=== PATIENT | female | born 1965 | race African-American/Black ===

== ENCOUNTER 2017-08-07 14:40 | Emergency (ER) | payer OTHER | END 2017-08-07 16:27 | disposition home or self-care (01) | LOC: ER 14:40 | DX: S40.022A Contusion of left upper arm, initial encounter (principal); I10 Essential (primary) hypertension; Z90.710 Acquired absence of both cervix and uterus; Z98.51 Tubal ligation status; X58.XXXA Exposure to other specified factors, initial encounter; Y93.89 Activity, other specified; Y92.89 Other specified places as the place of occurrence of the external cause; Y99.8 Other external cause status | CPT/HCPCS: 93971; 99283 ==

== ENCOUNTER 2021-06-24 11:42 | Emergency (ER) | payer SELFPAY ==
[~2021-06-24] VITALS: Ht 162.6 cm; Wt 96.3 kg
[~2021-06-24 11:42] MED LIST: ASCO500C PO; CALC500T54 PO; CHOL100013 PO; CYAN-25 PO; MULT-212 PO
[2021-06-24] MEDS ORDERED: KETOROLAC 60 MG/2 ML VIAL. IM ONE (12:15)
--- NOTE | 2021-06-24 13:08 | RAD ---
Left hip 2 views with one view pelvis. HISTORY: Pain, fell groin left hip pain Single view was taken of the pelvis. A pelvic fracture is not identified. Right hip appears unremarka ble. There is degenerative disc disease throughout the lumbar spine. AP and lateral views were taken of the left hip. There is slight spurring on the femoral head from mi ld arthritis. There is no fracture or acute osseous abnormality. IMPRESSION: 1. Degenerative disc disease in the lumbar spine. 2. No pelvic fracture noted. 3. Slight spurring from mild arthritis left hip. Electronically signed by: Nikolai Tucker MD (06/24/2021 1:05 PM) [id number]
--- NOTE | 2021-06-24 13:44 | PHYS DOC ---
Past Medical History Past Medical History: Hypertension Past Surgical History: Hysterectomy, Tubal ligation Smoking Status: Never Smoker Alcohol Use: Occasionally Additional Information: WINE Drug Use: None General Adult EDM: Chief Complaint: GROIN PAIN HPI: HPI: Patient is a 56 year old female presents to the ER with left groin pain. Patient states that yesterday she slipped on the floor of a [employer] and did the splits. States that today the pain has gotten worse patient has pain with ambulation. Denies any numbness or tingling. Review of Systems: Review of Systems: Constitutional: Denies fever or chills. Eyes: Denies change in visual acuity. HENT: Denies nasal congestion or sore throat. Respiratory: Denies cough or shortness of breath. Cardiovascular: Denies chest pain or edema. GI: Denies abdominal pain, nausea, vomiting, bloody stools or diarrhea. : Denies dysuria. Musculoskeletal: Left groin pain denies back pain or joint pain. Integument: Denies rash. Neurologic: Denies headache, focal weakness or sensory changes. Endocrine: Denies polyuria or polydipsia. Lymphatic: Denies swollen glands. [ Psychiatric: Denies depression or anxiety. Heart Score: C/O Chest Pain: No Risk Factors: Risk Factors: DM, Current or recent (<one month) smoker, HTN, HLP, family history of CAD, obesity. Risk Scores: Score 0 - 3: 2.5% MACE over next 6 weeks - Discharge Home Score 4 - 6: 20.3% MACE over next 6 weeks - Admit for Clinical Observation Score 7 - 10: 72.7% MACE over next 6 weeks - Early Invasive Strategies Current Medications: Current Medications Medications (Trade) Dose Ordered Sig/[facility] Start Time Stop Time Status Last Admin Dose Admin Ketorolac Tromethamine (Toradol Im) 30 mg 1X ONCE 06/24/21 12:15 06/24/21 12:17 DC 06/24/21 12:49 30 MG Lorazepam (Ativan Inj) 1 mg 1X ONCE 06/24/21 12:15 06/24/21 12:17 DC 06/24/21 12:49 1 MG Allergies: Allergies: Allergies Coded Allergies Type Severity Reaction Last Updated Verified No Known Drug Allergies 11/21/13 No Physical Exam: PE: Constitutional: Appears uncomfortable well developed, well nourished, no acute distress, non-toxic appearance. HENT: Normocephalic, atraumatic, bilateral external ears normal, oropharynx moist, no oral exudates, nose normal. Eyes: PERRLA, EOMI, conjunctiva normal, no discharge. Neck: Normal range of motion, no tenderness, supple, no stridor. Cardiovascular:Heart rate regular rhythm, no murmur Lungs & Thorax: Bilateral breath sounds clear to auscultation Abdomen: Bowel sounds normal, soft, no tenderness, no masses, no pulsatile masses. Skin: Warm, dry, no erythema, no rash. Back: No tenderness, no CVA tenderness. Extremities: Limited range of motion secondary to pain of the left hip and knee. Patient able to flex. No obvious deformity or shortening. Neurologic: Alert and oriented X 3, normal motor function, normal sensory function, no focal deficits noted. Psychologic: Affect normal, judgement normal, mood normal. Current Patient Data: Vital Signs: Vital Signs Date Time Temp Pulse Resp B/P (MAP) Pulse Ox O2 Delivery O2 Flow Rate FiO2 06/24/21 11:48 98.1 85 22 140/67 (91) 98 Room Air 98.1 EKG: EKG: [] Radiology/Procedures: Radiology/Procedures: []IMPRESSION: 1. Degenerative disc disease in the lumbar spine. 2. No pelvic fracture noted. 3. Slight spurring from mild arthritis left hip. Course & Med Decision Making: Course & Med Decision Making Pertinent Labs and Imaging studies reviewed. (See chart for details) [] Dragon Disclaimer: Hannah Disclaimer: This electronic medical record was generated, in whole or in part, using a voice recognition dictation system. Departure Departure Referrals: BRYAN CARCAMO MD (PCP) WILLIAN SHEPARD DO Jun 24, 2021 13:44
[2021-06-24] MEDS ORDERED: IBUP-1007 PO (13:47)
[2021-06-24] MEDS ORDERED: CYCL5TAB PO (13:47)
[2021-06-24 14:00] VITALS: BP 128/64
== END 2021-06-24 14:00 | disposition home or self-care (01) ==
LOC: ER 11:42
DX: R10.32 Left lower quadrant pain (principal); M25.552 Pain in left hip; I10 Essential (primary) hypertension; Z90.710 Acquired absence of both cervix and uterus; Z98.51 Tubal ligation status; G89.11 Acute pain due to trauma; W01.0XXA Fall on same level from slipping, tripping and stumbling without subsequent striking against object, initial encounter; Y93.89 Activity, other specified; Y92.89 Other specified places as the place of occurrence of the external cause; Y99.8 Other external cause status
CPT/HCPCS: 73502; 96372; 99284; J1885; J2060